=== PATIENT | male | born 1995 | race Asian ===

== ENCOUNTER 2017-04-09 09:22 | Emergency (ER) | payer OTHER ==
[2017-04-09 09:31] VITALS: BP 130/84; PULSE 58; TEMP 97.7; BMI 20.3
[2017-04-09] MEDS ORDERED: IBUPROFEN 400 MG TABLET (FP) PO ONE ×2 (10:21→10:26)
--- NOTE | 2017-04-09 10:25 | PDOC ---
History of Present Illness - General Chief Complaint: Pain, Acute Stated Complaint: RT SHOULDER PAIN Time Seen by Provider: 04/09/17 09:41 History Source: Patient Exam Limitations: No Limitations - History of Present Illness Initial Comments: 04/09/17 10:22 pt woke up 3 days ago with pain to right shoulder, pain continues pt has history of dislocation in the past with reduction on his own pt denies numbness or tingling Past History - Past Medical History Allergies/Adverse Reactions: Allergies Allergy/AdvReac Type Severity Reaction Status Date / Time No Known Allergies Allergy Verified 04/09/17 09:27 Home Medications: Ambulatory Orders Cyclobenzaprine HCl [Flexeril -] 10 mg PO TID PRN #21 tablet 04/09/17 Naproxen [Naprosyn -] 500 mg PO BID PRN #14 tablet 04/09/17 GI Disorders: Yes (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) - Surgical History Abdominal Surgery: Yes (PT REPORTS COLON SURGERY) - Immunization History Immunization Up to Date: Yes - Psycho/Social/Smoking Cessation Hx Suicidal Ideation: No Smoking History: Current every day smoker Have you smoked in the past 12 months: Yes Number of Cigarettes Smoked Daily: 10 Information on smoking cessation initiated: No Hx Alcohol Use: No Drug/Substance Use Hx: No Substance Use Type: Marijuana *Physical Exam - Vital Signs Last Vital Signs Temp Pulse Resp BP Pulse Ox 97.7 F 58 L 17 130/84 100 04/09/17 09:27 04/09/17 09:27 04/09/17 09:27 04/09/17 09:27 04/09/17 09:27 - Physical Exam General Appearance: Yes: Nourished, Appropriately Dressed HEENT: positive: EOMI, JOEY, Normal ENT Inspection, TMs Normal, Pharynx Normal Neck: positive: Supple Respiratory/Chest: positive: Lungs Clear, Normal Breath Sounds Cardiovascular: positive: Regular Rhythm, Regular Rate Gastrointestinal/Abdominal: positive: Normal Bowel Sounds, Soft Musculoskeletal: positive: Normal Inspection Extremity: positive: Normal Capillary Refill, Normal Inspection, Tender ( anterior shoulder right side, limited abduction , flexion limited due to pain ) Procedures - Splinting Sling: Yes (right shoulder ) ED Treatment Course - RADIOLOGY Radiology Studies Ordered: Category Date Time Status SHOULDER-RIGHT [RAD] Stat Radiology 04/09/17 09:50 Completed *DC/Admit/Observation/Transfer Diagnosis at time of Disposition: Shoulder separation Qualifiers: Encounter type: initial encounter Laterality: right Qualified Code(s): S43.004A - Unspecified dislocation of right shoulder joint, initial encounter - Discharge Dispostion Disposition: HOME Condition at time of disposition: Good - Prescriptions Prescriptions: Cyclobenzaprine HCl [Flexeril -] 10 mg PO TID PRN #21 tablet PRN Reason: Muscle Spasms Naproxen [Naprosyn -] 500 mg PO BID PRN #14 tablet PRN Reason: Pain - Referrals Referrals: George Fox MD [Staff Physician] - - Patient Instructions Additional Instructions: please follow with the orthopedist call today to make appointment for next week take the muscle relaxant as directed with the anti-inflamatory medicine use the sling while awake remove to sleep and bathe
== END 2017-04-09 10:59 | disposition home or self-care (01) ==
LOC: JERFT 09:22
DX: S43.004A Unspecified dislocation of right shoulder joint, initial encounter (principal); F17.210 Nicotine dependence, cigarettes, uncomplicated; X58.XXXA Exposure to other specified factors, initial encounter; Y93.89 Activity, other specified; Y92.9 Unspecified place or not applicable
CPT/HCPCS: 73030-TC-RT; 99281-25

== ENCOUNTER 2019-06-01 15:10 | Emergency (ER) | payer OTHER ==
[2019-06-01 15:16] VITALS: BMI 28.1
--- NOTE | 2019-06-01 15:18 | PDOC ---
Rapid Medical Evaluation Time Seen by Provider: 06/01/19 15:11 Medical Evaluation: Allergies Allergy/AdvReac Type Severity Reaction Status Date / Time No Known Allergies Allergy Verified 04/09/17 09:27 06/01/19 15:13 I have performed a brief in-person evaluation of this patient. The patient presents with a chief complaint of:right shoulder Pertinent physical exam findings: pain and immobility to right shoulder , strong grasp. I have ordered the following: shoulder right XraY The patient will proceed to the ED for further evaluation. Discharge Disposition - Diagnosis Shoulder pain, acute - Discharge Dispostion Condition at time of disposition: Stable - Referrals - Patient Instructions - Post Discharge Activity
--- NOTE | 2019-06-01 15:40 | PDOC ---
History of Present Illness - General Chief Complaint: Injury Stated Complaint: INJURY Time Seen by Provider: 06/01/19 15:11 Past History - Past Medical History Allergies/Adverse Reactions: Allergies Allergy/AdvReac Type Severity Reaction Status Date / Time No Known Allergies Allergy Verified 06/01/19 15:16 Home Medications: Ambulatory Orders Cyclobenzaprine HCl [Flexeril -] 10 mg PO TID PRN #21 tablet 04/09/17 Naproxen [Naprosyn -] 500 mg PO BID PRN #14 tablet 04/09/17 COPD: No GI Disorders: Yes (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) - Surgical History Abdominal Surgery: Yes (PT REPORTS COLON SURGERY) - Immunization History Immunization Up to Date: Yes - Psycho Social/Smoking Cessation Hx Smoking History: Never smoked Have you smoked in the past 12 months: Yes Number of Cigarettes Smoked Daily: 10 Hx Alcohol Use: No Drug/Substance Use Hx: No Substance Use Type: Marijuana *Physical Exam - Vital Signs Last Vital Signs Temp Pulse Resp BP Pulse Ox 98 F 79 18 130/80 100 06/01/19 15:10 06/01/19 15:10 06/01/19 15:10 06/01/19 15:10 06/01/19 15:10 Discharge - Discharge Information Clinical Impression/Diagnosis: Shoulder pain, acute Condition: Stable - Follow up/Referral - Patient Discharge Instructions - Post Discharge Activity
--- NOTE | 2019-06-01 16:21 | PDOC ---
*Physical Exam - Vital Signs Last Vital Signs Temp Pulse Resp BP Pulse Ox 98 F 79 18 130/80 98 06/01/19 15:10 06/01/19 15:10 06/01/19 15:10 06/01/19 15:10 06/01/19 16:03 Medical Decision Making - Medical Decision Making HPI: 24 y/o male received as upgrade from fast track for evaluation of a right anterior shoulder dislocation. Pt endorsed to main ED team by MACHINE REPAIRER Shalonda Monteiro. Pt was walking with a heavy bag and tripped. Did not fall forward onto his head or neck. Able to walk after but felt the pain the shoulder. Denies numbness, tingling, or difficulty moving right elbow or hand. 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 Physical Examination: Constitutional- Well-developed, well-nourished adult male in no acute distress or obvious discomfort. Found sitting upright on edge of hospital bed. Answered all questions appropriately and completely. Head- Normocephalic. No obvious external signs of trauma. Cardiovascular / Chest- Regular rate and regular rhythm. No murmur, rubs, clicks , or gallops. Peripheral pulses- radial pulses full. Respiratory- Breathing unlabored. Equal chest rise and fall. Clear to auscultation bilaterally. No stridor, no wheezing, no rhonchi. Neuro- Alert and oriented x4. MSK- Splinting right arm against chest. Obvious anterior shoulder deformity when compared to left. Right radial pulse and sensation in right hand intact. Skin- Warm, dry, and intact. Psych- Affect- tearful. Mood- normal. Speech was non-labored, non-pressured. MDM: *Reviewed vital signs, nursing notes, and prior visit documentation (if available). 24 y/o male presenting with right anterior shoulder dislocation. Afebrile. Vitals unremarkable for hypotension or tachycardia. Physical exam as described above. Shoulder was reduced under moderate sedation. See procedure and sedation sections. Post reduction film unremarkable for fracture. Arm placed in shoulder immobilizer and sling. Neurovascularly intact. Pt evaluated post sedation after observation period. Found to be A/O x4. No longer appearing clinically sedated. Tolerated PO without difficulty. Ambulating without assistance. Pt has ride home from the department. Will be observed by friends/family for the next several hours. Post sedation instructions provided in both verbal and written form. Discussed xray findings with pt . Answered all questions. Provided return precautions. Pt expressed verbal understanding and agreement with plan to discharge home with outpatient follow up. Provided copies of todays results including CD of radiographs. Orthopedic referral placed. Jovany Espinal M.D., PGY2 Emergency Medicine Resident Discharge - Discharge Information Problems reviewed: Yes Clinical Impression/Diagnosis: History of conscious sedation Shoulder pain, acute Qualifiers: Laterality: right Qualified Code(s): M25.511 - Pain in right shoulder Dislocation of shoulder, anterior, right, closed Qualifiers: Encounter type: initial encounter Qualified Code(s): S43.014A - Anterior dislocation of right humerus, initial encounter Condition: Stable Disposition: HOME - Admission No - Follow up/Referral Referrals: Elias Olivares DO [Staff Physician] - - Patient Discharge Instructions Patient Printed Discharge Instructions: DI for Shoulder Dislocation, DI for Acute Pain -- Adult, DI for Moderate Sedation Additional Instructions: You were seen today for right shoulder pain. You dislocated your right shoulder. The joint was reduced with moderate sedation. The shoulder was placed in a sling and shoulder immobilizer. You can take over the counter Advil/Motrin (Ibuprofen) for pain. Start with taking 400mg every 6 hours. If the pain becomes worse then add Tylenol ( Acetaminophen) between doses of Advil/Motrin (Ibuprofen). An example schedule is as follows: 12:00 pm 400mg Ibuprofen/Advil/Motrin 3:00 pm 1000mg Tylenol 6:00 pm 400mg Ibuprofen/Advil/Motrin 9:00 pm 1000mg Tylenol 12:00 am 400mg Ibuprofen/Advil/Motrin etc. You can also follow up with an orthopedic doctor. I have entered a referral for you to see Dr. Rolon. You will need to call to make an appointment. The number is included in this packet. A copy of todays results are attached to this packet. Take it to the appointment so your doctor can review them. You can also follow up with your primary care physician. Go to the nearest emergency department if your condition worsens or you feel like you need additional emergency evaluation. Print Language: INDONESIAN - Post Discharge Activity Work/Back to School Note: Back to Work Moderate Sedation - Pre-Procedure Assessment # 1 Joint Reduction Is this a Moderate (Conscious) sedation patient?: Yes Med/Surg Hx & PE performed: Yes Vital Signs: Vital Signs Temp Pulse Resp BP Pulse Ox 98 F 79 18 130/80 98 06/01/19 15:10 06/01/19 15:10 06/01/19 15:10 06/01/19 15:10 06/01/19 16:03 Does the patient have a history of Obstructive Sleep Apnea: No Prior complications with sedation/analgesia: No NPO since (date): 06/01/19 NPO since (time): 14:00 Mallampati Score: I ASA Physical Status: Class I Consent obtained: Written, From Patient Time out called (time): 16:30 Items checked for time out procedure: All work stopped, Patient identified using 2 identifiers, Procedure to be performed verified & agreed, Allergies noted, Consent read, ED physician/MACHINE REPAIRER/PA/Resident identified, Patient position verified, All active procedure participants present from the beginning Sedation agent: Other (Ketamine and Propofol) - Post Procedure Assessment Tolerated procedure well: Yes Complications [comment]: Brief episode of sinus tachycardia. Resolved with IVFB. Was a reversal agent used?: No Patient evaluation: Awake, alert and oriented, Vital signs reviewed, Cardiopulmonary exam normal, Pain controlled Printed Discharge Instructions given: Yes Procedures - Joint Reduction Right Joint Reduction Site: right: Shoulder Pre-Procedure NV Exam: normal Conscious Sedation: Yes (See sedation section.) Procedure: Traction Counter Traction Post-Procedure NV Exam: normal Complications: No Post Joint Reduction Film: joint reduced Splint: Yes Immobilized: Yes
[2019-06-01] MEDS ORDERED: KETAMINE HCL 200 MG/20 ML VIAL ONE (16:27)
[2019-06-01] MEDS ORDERED: PROPOFOL 1,000,000 MCG/100 ML VIAL ONE (16:27)
[2019-06-01] MEDS ORDERED: SODIUM CHLORIDE 0.9% 1000 ML INFUS.BAG IV ONE (16:30)
[2019-06-01] MEDS ORDERED: ONDANSETRON 4 MG/2 ML VIAL ONE (16:33)
[2019-06-01] MEDS ORDERED: ONDANSETRON 4 MG/2 ML VIAL IVPUSH ONE (17:02)
[2019-06-01] MEDS ORDERED: KETAMINE HCL 200 MG/20 ML VIAL IVPUSH ONE (17:07)
[2019-06-01] MEDS ORDERED: PROPOFOL 200 MG/20 ML VIAL IVPUSH ONE (17:08)
--- NOTE | 2019-06-01 17:08 | PDOC ---
*Physical Exam - Vital Signs Last Vital Signs Temp Pulse Resp BP Pulse Ox 98 F 79 18 130/80 98 06/01/19 15:10 06/01/19 15:10 06/01/19 15:10 06/01/19 15:10 06/01/19 16:03 - Physical Exam Comments: 06/01/19 17:05 Gen: aaox3, in pain, R shoulder deformity HEart: +s1s2 reg lungs: cta b/l abd: soft, nt/nd +bs ext: R shoulder anterior dislocation, pulses intact, neurovasc intact distal, all other extremities with FROM Heart Score/ECG Review - ECG Intrepretation Comment:: 06/01/19 17:08 sinus tach at 155, nl axis, nl interval, no acute st/t wave findings Medical Decision Making - Medical Decision Making 06/01/19 17:06 a/p: 24yo male with R shoulder pain upgraded from Fast track for R shoulder dislocation -pt is dislocated anteriorly -pt last po intake was 3 hours ago -no allergies -closed reduction using conscious sedation -pt placed in a shoulder immobilizer -post reduction fill shows shoulder in place -pt tolerated the procedure well -pt did have sinus tach after receiving meds, pt receiving ivf hydration -will continue to monitor 06/01/19 17:08 HR now 104 awake, following commands neurovasc distal in UE 06/01/19 17:25 reduction film shows shoulder back in place 06/01/19 18:07 pt awake, will po challenge 06/01/19 18:22 pt tolerated po stable for dc to home and follow up with orthopedics Discharge - Discharge Information Problems reviewed: Yes Clinical Impression/Diagnosis: History of conscious sedation Shoulder pain, acute Qualifiers: Laterality: right Qualified Code(s): M25.511 - Pain in right shoulder Dislocation of shoulder, anterior, right, closed Qualifiers: Encounter type: initial encounter Qualified Code(s): S43.014A - Anterior dislocation of right humerus, initial encounter Condition: Stable Disposition: HOME - Admission No - Follow up/Referral Referrals: Elias Olivares DO [Staff Physician] - - Patient Discharge Instructions Patient Printed Discharge Instructions: DI for Shoulder Dislocation, DI for Acute Pain -- Adult, DI for Moderate Sedation Additional Instructions: You were seen today for right shoulder pain. You dislocated your right shoulder. The joint was reduced with moderate sedation. The shoulder was placed in a sling and shoulder immobilizer. You can take over the counter Advil/Motrin (Ibuprofen) for pain. Start with taking 400mg every 6 hours. If the pain becomes worse then add Tylenol ( Acetaminophen) between doses of Advil/Motrin (Ibuprofen). An example schedule is as follows: 12:00 pm 400mg Ibuprofen/Advil/Motrin 3:00 pm 1000mg Tylenol 6:00 pm 400mg Ibuprofen/Advil/Motrin 9:00 pm 1000mg Tylenol 12:00 am 400mg Ibuprofen/Advil/Motrin etc. You can also follow up with an orthopedic doctor. I have entered a referral for you to see Dr. Rolon. You will need to call to make an appointment. The number is included in this packet. A copy of todays results are attached to this packet. Take it to the appointment so your doctor can review them. You can also follow up with your primary care physician. Go to the nearest emergency department if your condition worsens or you feel like you need additional emergency evaluation. Print Language: ROMANIAN - Post Discharge Activity Work/Back to School Note: Back to Work
[2019-06-01 19:34] VITALS: BP 110/75; PULSE 85
[2019-06-01 21:18] VITALS: TEMP 98.1
--- NOTE | 2019-06-02 14:00 | EKG ---
Test Reason : Blood Pressure : / mmHG Vent. Rate : 155 BPM Atrial Rate : 155 BPM P-R Int : 124 ms QRS Dur : 072 ms QT Int : 252 ms P-R-T Axes : 067 160 039 degrees QTc Int : 404 ms SINUS TACHYCARDIA RIGHT AXIS DEVIATION ABNORMAL ECG NO PREVIOUS ECGS AVAILABLE Confirmed by JENI MARTINEZ MD ([id number]) on 06/02/2019 2:00:14 PM Referred By: Confirmed By:JENI MARTINEZ MD
== END 2019-06-01 18:45 | disposition home or self-care (01) ==
LOC: JER 15:10 → JERFT 15:10 → JER 18:45
PROC: 3E033GC Introduction of Other Therapeutic Substance into Peripheral Vein, Percutaneous Approach (ICD-10-PCS; principal; 2019-06-01)
PROC: 3E033FZ Introduction of Intracirculatory Anesthetic into Peripheral Vein, Percutaneous Approach (ICD-10-PCS; 2019-06-01)
PROC: 0RSJXZZ Reposition Right Shoulder Joint, External Approach (ICD-10-PCS; 2019-06-01)
DX: S43.014A Anterior dislocation of right humerus, initial encounter (principal); W18.39XA Other fall on same level, initial encounter; Y93.89 Activity, other specified; Y92.89 Other specified places as the place of occurrence of the external cause; Y99.8 Other external cause status
CPT/HCPCS: 73030-TC-RT-FY; 93005; 93010; 99283-25; J7030